=== PATIENT | male | born 1935 | race African-American/Black ===

== ENCOUNTER → 2018-12-08 | Outpatient (CLI) | payer MEDICARE, OTHER ==
--- NOTE | 2018-12-08 12:22 | PCVCIMAG ---
APPROVED REPORT Study performed: 12/08/2018 11:27:20 Exam: Stress Echocardiogram Indication: chest pain, syncope, muirmur Patient Location: Echo lab Stress Nurse: Dania Proctor RN Status: routine Ht: 5 ft 9 in HR: 54 bpm BP: 120/80 mmHg Rhythm: NSR Procedure The patient underwent an Exercise Stress Test using the [place] Protocol. Blood pressure, heart rate, and EKG were monitored. An Echocardiogram was performed by senior wind turbine technician in four stages in quad fashion. At peak stress, four selected images were obtained and placed side by side with resting images for comparison. Stress Test Details Stress Test: Exercise stress testing was performed using a [place] protocol. HR Resting HR: 54 bpmMax Heart Rate (APMHR): 139 bpm Max HR Achieved: 123 bpmTarget HR (85% APMHR): 118 bpm % of APMHR: 88 Recovery HR: 52 bpm HR response to stress: Normal HR response to stress BP Resting BP: 120/80 mmHg Max BP: 150/80 mmHg Recovery BP: 124/74 mmHg BP response to stress: Normal blood pressure response to stress. ECG Resting ECG: Sinus Rhythm Stress ECG: Sinus Rhythm Arrhythmia: PVC's Recovery ECG: PVC's Recovery Arrhythmia: VPC Clinical Reason for Termination: PVC's Exercise duration: 6 min sec Highest Stage Achieved: Stage 2: 2.5 mph at 12% grade. Exercise capacity: 7.40 METs Overall Exercise Capacity for Age: Normal Pre-Stress Echo The resting Echocardiogram showed normal left ventricular contractility with an estimated Ejection Fraction of about 55-60%. Normal wall motion in all segments on baseline images. Post-Stress Echo The stress Echocardiogram showed normal left ventricular contractility with an estimated Ejection Fraction of about 60-65%. Normal augmentation of wall motion in all segments on post stress images. Clinical No clinical or ECG evidence for ischemia. Conclusion Clinical Response: Non-ischemic Exercise Capacity: Average Stress ECG Response: Non-ischemic Stress Echo Images: Non-ischemic Left ventricular hypertrophy. Trace tricuspid regurgitation. Pulmonary artery pressure 32mmHg. Other Information Study Quality: Good <Conclusion> Left ventricular hypertrophy. Trace tricuspid regurgitation. Pulmonary artery pressure 32mmHg.
== END | disposition home or self-care (01) ==
LOC: PCVCIMAG 10:53
PROVIDERS: ATTEND Internal Medicine Cardiovascular Disease
DX: I51.7 Cardiomegaly (principal)
CPT/HCPCS: 93351